=== PATIENT | female | born 1980 | race Caucasian/White ===

== ENCOUNTER → 2016-11-19 | Outpatient (CLI) | payer OTHER ==
[~2016-11-19] MED LIST: GADOBUTROL 10 ML VIAL IVP ONE
== END ==
LOC: FIMAGING 10:03
PROVIDERS: ATTEND Obstetrics & Gynecology
DX: D25.9 Leiomyoma of uterus, unspecified (principal)
CPT/HCPCS: A9585

== ENCOUNTER 2016-12-26 07:25 | Observation (INO) | payer OTHER ==
[2016-12-26] MEDS ORDERED: SCOPOLAMINE HYDROBROMIDE 1.5 MG PATCH TD ONE ×2 (07:37→08:30)
[2016-12-26] MEDS ORDERED: KETOROLAC 30 MG/1 ML SDV IVP ONE (07:37)
[2016-12-26] MEDS ORDERED: NS 1,000 ML IV ONE (07:37)
[2016-12-26] MEDS ORDERED: fentaNYL 100 MCG/2 ML INJ ONE (07:37)
[2016-12-26] MEDS ORDERED: MIDAZOLAM 2 MG/2 ML VIAL ONE (07:38)
[2016-12-26] MEDS ORDERED: KETOROLAC 15 MG/1 ML SDV ONE (08:03)
[2016-12-26 08:22] LABS: % IMMATURE GRANULYOCYTES 0.4 % (0.0-1.1); ABSOLUTE IMMATURE GRANULOCYTES 0.03 10^3/uL (0.00-0.10); ADD DIFF? NO; ADD MORPH? NO; ADD SCAN? NO; ATYPICAL LYMPHOCYTE FLAG 0 (0-99); FRAGMENT RBC FLAG 0 (0-99); HEMOGLOBIN 13.4 g/dL (12.6-16.3); LEFT SHIFT FLG 0 (0-99); LIPEMIA HEMOLYSIS FLAG 90 (0-99); MEAN CELL HEMOGLOBIN 29.3 pg (27.9-34.1); MEAN CELL HEMOGLOBIN CONCENTR. 34.4 g/dL (32.4-36.7); MEAN CELL VOLUME 85.2 fL (81.5-99.8); MEAN PLATELET VOLUME 10.9 fL (8.7-11.7); PLATELET CLUMPS FLAG 10 (0-99); PLATELET COUNT 309 10^3/uL (150-400); RED BLOOD CELL COUNT 4.58 10^6/uL (4.18-5.33); RED CELL DISTRIBUTION WIDTH 13.7 % (11.5-15.2)
[2016-12-26] MEDS ORDERED: PROMETHAZINE HCL 25 MG/ML INJ ONE (08:28)
[2016-12-26] MEDS ORDERED: ALLOPURINOL 300 MG TAB PO ONE (08:30)
[2016-12-26] MEDS ORDERED: DEXMEDETOMIDINE HCL 200 MCG in NS 50 ML IV SCH (08:30)
[2016-12-26 08:33] LABS: CREATININE 0.7 mg/dL (0.6-1.0); GLOMERULAR FILTRATION RATE > 60
[2016-12-26 08:35] LABS: INR 1.03 (0.83-1.16); PROTIME(PATIENT) 13.4 SEC (12.0-15.0)
[2016-12-26 08:36] LABS: APTT 29.2 SEC (23.0-38.0)
[2016-12-26] MEDS ORDERED: HYDROmorphONE/DILAUDID 6 MG/30 ML PCA IV ONE (09:28)
[2016-12-26] MEDS ORDERED: IOPAMIDOL (ISOVUE-300) 100 ML BTL IV ONE ×4 (09:29→11:34)
[2016-12-26] MEDS ORDERED: HEPARIN 10,000 UNIT/10 ML MDV ONE (09:29)
[2016-12-26] MEDS ORDERED: BUPIVACAINE 0.5% 30 ML SDV ONE (09:58)
[2016-12-26] MEDS ORDERED: LIDOCAINE 1% 30 ML SDV ONE (09:59)
[2016-12-26] MEDS ORDERED: ZOLPIDEM TARTRATE 5 MG TAB PO PRN (11:56)
[2016-12-26] MEDS ORDERED: ONDANSETRON 4 MG/2 ML VIAL IVP PRN (11:56)
[2016-12-26] MEDS ORDERED: LACTULOSE 20 GM/30 ML UDCUP PO PRN (11:56)
[2016-12-26] MEDS ORDERED: BISACODYL 10 MG SUPP PR PRN (11:56)
[2016-12-26] MEDS ORDERED: oxyCODONE IR 5 MG TAB PO PRN (11:56)
[2016-12-26] MEDS ORDERED: NALOXONE HCL 0.4 MG/ML INJ IVP PRN (11:56)
[2016-12-26] MEDS ORDERED: MAGNESIUM HYDROXIDE 30 ML UDCUP PO PRN (11:56)
[2016-12-26] MEDS ORDERED: HYDROmorphONE/DILAUDID 6 MG/30 ML PCA IV PRN (11:56)
[2016-12-26] MEDS ORDERED: POLYETHYLENE GLYCOL 3350 17 GM PKT PO PRN (11:56)
--- NOTE | 2016-12-26 12:00 | POSTOPPROG ---
Post Op Note Date of Operation: 12/26/16 Surgeon: Neva Bell Anesthesia: IV Sedation (precedex, fentanyl, versed) Pre-op Diagnosis: large fibroid Post-op Diagnosis: same Indication: significant symptoms Procedure: UFE Findings: L>R vascular supply Inf/Abcess present in the surg proc area at time of surgery?: No Depth: Superfical (Skin SQ) EBL: Minimal Complications: None
[2016-12-26] MEDS: KETOROLAC 30 MG/1 ML SDV IVP SCH ×2 (15:02→18:34)
[2016-12-26] MEDS: NS 1,000 ML IV SCH (16:22)
[2016-12-26] MEDS: SENNOSIDES/DOCUSATE SODIUM TAB PO SCH ×2 (20:47→20:48)
[2016-12-27] MEDS: KETOROLAC 30 MG/1 ML SDV IVP SCH ×2 (00:04→05:58)
[2016-12-27] MEDS: NS 1,000 ML IV SCH (02:44)
[2016-12-27] MEDS ORDERED: NS 500 ML IV ONE (07:00)
[2016-12-27] MEDS ORDERED: levOFLOXACIN 500 MG/DEXTROSE 100 ML IV ONE (09:00)
[2016-12-27] MEDS: SENNOSIDES/DOCUSATE SODIUM TAB PO SCH (09:44)
[2016-12-27 09:57] VITALS: RESP 14
[2016-12-27] MEDS ORDERED: IBUPROFEN 600 MG TAB PO SCH (12:00)
[2016-12-27 12:03] VITALS: BP 100/67; PULSE 75; TEMP 98.2; O2SAT 91
--- NOTE | 2016-12-27 13:37 | SOAPPROG ---
SOAP Progress Note Assessment/Plan: Assessment: Post [place]. Doing well. Plan: D/C today. Discussed D/C instructions with patient. 12/27/16 13:35 Subjective: Very minimal pain. Finally urinating quite a bit. IV fluids are catching up. Objective: Vital Signs Temp Pulse Resp BP Pulse Ox 36.8 C 75 14 100/67 91 L 12/27/16 12:00 12/27/16 12:00 12/27/16 12:00 12/27/16 12:00 12/27/16 12:00 Laboratory Results 12/26/16 07:38 12/26/16 07:38 12/26/16 12/27/16 12/28/16 05:59 05:59 05:59 Intake Total 1880 Output Total 975 400 Balance 905 -400 PT 13.4 SEC (12.0-15.0) 12/26/16 07:38 INR 1.03 (0.83-1.16) 12/26/16 07:38 RT groin without hematoma. Abd unchanged. ICD10 Worksheet Patient Problems: Problems Problem Status Onset Fibroids, intramural Acute - ICD10 Problem Qualifiers (1) Fibroids, intramural
[2016-12-27] MEDS ORDERED: IOPAMIDOL (ISOVUE-300) 100 ML BTL IV ONE (14:34)
[2016-12-28] MEDS ORDERED: CHOLECALCIFEROL VIT D3 1,000 UNITS TAB PO SCH (09:00)
[2016-12-28] MEDS ORDERED: MULTIVITAMINS 1 EACH TAB PO SCH (09:00)
[2016-12-28] MEDS ORDERED: Herbals/Supplements -Info Only PO SCH (09:00)
[2016-12-28] MEDS ORDERED: OMEGA-3 FATTY ACIDS 1,000 MG CAP PO SCH (09:00)
[2016-12-28] MEDS ORDERED: CHOLECALCIFEROL 1000 UNIT PO SCH (09:00)
== END 2016-12-27 14:48 | disposition home or self-care (01) ==
LOC: FIMAGING 07:25 → F3E 13:37 → INTOOBSV 13:37
PROVIDERS: ADMIT Radiology Diagnostic Radiology; ATTEND Radiology Diagnostic Radiology
DX: D25.1 Intramural leiomyoma of uterus (principal)
CPT/HCPCS: 36247; 37243; 75736; 99152; 99153; C1769; C1894; G0378; C1760; J1170; J1644; J1885; J1956; J2250; J2405; J2550; J3010; Q9967